=== PATIENT | male | born 1950 | race Caucasian/White ===

== ENCOUNTER 2016-12-08 15:48 | Emergency (ER) | payer SELFPAY ==
[2016-12-08 15:54] VITALS: BP 124/62
[2016-12-08] MEDS ORDERED: DIPHTH,PERTUSS(ACELL),TET VAC 0.5 ML VIAL IM ONE ×2 (16:00→16:22)
[2016-12-08] MEDS ORDERED: CLINDAMYCIN HCL 150 MG CAPSULE PO ONE (16:24)
[2016-12-08] MEDS ORDERED: CLINDAMYCIN HCL 150 MG CAPSULE ONE (16:29)
--- NOTE | 2016-12-08 16:35 | ERNOTE ---
Lower Extremity HPI - Narrative Date of Service: 12/08/16 - General Lower Extremities Pain: 1st toe: left Time Seen by Provider: 12/08/16 15:56 Source: patient Exam Limitations: no limitations - Immun/Allergies/Home Medications Immunizations: IMMUNIZATION HX Immunizations Up to Date patient unsure History of Influenza Vaccine No Hx Pneumococcal Vaccination No Allergies/Adverse Reactions: Allergies Allergy/AdvReac Type Severity Reaction Status Date / Time morphine Allergy Severe Swelling Verified 12/08/16 15:56 of Throat Home Medications: HOME MEDICATIONS Lovastatin [Altoprev] 40 mg PO DAILY 09/15/13 [Last Taken Unknown] Warfarin Sodium [Coumadin] 7.5 mg PO MOWEFR 09/15/13 [Last Taken Unknown] Warfarin Sodium [Coumadin] 10 mg PO SUTUTHSA 09/15/13 [Last Taken Unknown] Escitalopram Oxalate [Lexapro] 20 mg PO DAILY 10/05/16 [Last Taken Unknown] Pentoxifylline [Trental] 400 mg PO TID 10/05/16 [Last Taken Unknown] metFORMIN HCL [Metformin HCl ER] 500 mg PO BID 10/05/16 [Last Taken Unknown] oxyCODONE HCL/ACETAMINOPHEN [Percocet 5 MG/325 MG] 1 tab PO PRN PRN 10/05/16 [ Last Taken Unknown] Clindamycin HCl [Cleocin HCl] 300 mg PO TID #28 capsule 12/08/16 [Last Taken Unknown] - History of Present Illness Narrative: Patient presents to the ED for a toe injury. He relates that he dropped a microwave on his left great toe . This crushed his toe. This happened 3 days ago. He did not want to come in but his friends brought him in to be checked. No other injuries. Pain in the toe moderate right now. No fever. had a toe amputation 1.5 months ago in [place]. No acute N/T/W. No other complaints. No Cp or SOB. Occurred: other - 3 days ago Location of Incident: home Method of Injury: Reports: direct blow Modifying Factors - (Improves): Reports: rest Modifying Factors - (Worsens): Reports: movement Associated Symptoms: Denies: unable to bear weight, weakness Other Injuries: Reports: none Subsequent Symptoms: Denies: sensory loss Prior Treament: Denies: recently seen Review of Systems - Review of Systems Constitutional: Absent: fever Respiratory: Absent: shortness of breath Cardiology: Absent: chest pain Gastrointestinal/Abdominal: Absent: abdominal pain - Patient's Past Medical History Patient History - Medical: No pertinent hx, Diabetes Type 2 Patient History - Cardiac/Respiratory: Atrial Fibrillation, CHF, COPD Patient History - Cancer: No Hx of Cancer Patient History - Surgical Procedures: Appendectomy, Other Patient History - Other: None - Social History Living Situations: home Abuse History: No History of abuse Psych History: Hx of Anxiety, Hx of Depression Smoking Status: Former smoker Have you smoked in the past 12 months: Yes Patient requests Smoking Cessation Consult: No Initiate information on Smoking Cessation: No Alcohol Use: heavy Drug Use: marijuana - Immunizations Immunizations Up to Date: - patient unsure Hx Pneumococcal Vaccination: No History of Influenza Vaccine: No Physical Exam - Physical Exam General Appearance: Present: alert, no apparent distress Head Exam: Present: normal inspection Eye Exam: Normal inspection: bilateral Ears, Nose, Throat: Present: normal ENT inspection Neck: Present: normal inspection Respiratory: Present: no respiratory distress Cardiovascular/Chest: Present: regular rate, rhythm, normal peripheral pulses, other - foot warm and well perfused Gastrointestinal/Abdominal: Present: normal bowel sounds, nontender Extremity Exam: Present: other - no tenderness Tib/Fib, no ankle or other foot tendenress aside from great toe. Left great toe swollen with old, clotted blood under nail. Nail is well adherent though. No clear infection. Tenderness distal great toe. no other tendenress. no clear cellulitis or nec fac. No necrotic areas.\ Neurological Exam: Present: alert, other - sensation LT toe intact. No clear acute motor deficits Skin Exam: Present: normal color, warm/dry, other - bruising left great toe, no clear cellulitis ED Progress - Vital Signs Patient's Vital Signs:: I have reviewed the patient's vital signs. Vital Signs: Vital Signs 12/08/16 15:51 Temperature 36.6 C Pulse Rate 57 L Respiratory 18 Rate Blood Pressure 124/62 O2 Sat by Pulse 98 Oximetry - X-Ray X-Ray #1 X-Ray: foot Interpretation: Interp. by me X-ray Comments: No real time reads by radiology. Tuft fracture great toe, penfing reading - Progress/Reassessment Chief Complaint: Lower Extremity Pain/ Injury Progress Note-Subjective: 12/08/16 16:31 I spoke with Lowell Tsai and discussed the case with him. He recommends ABx and call office tomorrow for appointment. Pt agreeable. I discussed warning signs and reasons to return as well as the need for close f/u. Departure Clinical Impression: Fracture of toe of left foot - Departure Disposition: Home self-care Condition: Stable Instructions: Toe Fracture, [id number] Additional Instructions: Rest. Elevation. Take antibiotic as directed. Antibiotics can interfere with Coumadin, this will need to be followed closely. You are to call Orthopedics in the morning for an appointment time, I spoke with them about your case today. If you have any difficulty with getting an appointment call here and we will help you. Return for fever, increased redness or if your condition worsens or changes in any way. Referrals: María Gibbons FNP [Primary Care Provider] - Prescriptions: Clindamycin HCl [Cleocin HCl] 300 mg PO TID #28 capsule
== END 2016-12-08 16:40 | disposition home or self-care (01) ==
LOC: ER 15:48
DX: M84.478A Pathological fracture, left toe(s), initial encounter for fracture (principal); F17.200 Nicotine dependence, unspecified, uncomplicated

== ENCOUNTER 2018-04-11 11:18 | Inpatient (IN) ==
[2018-04-11] MEDS ORDERED: NORMAL SALINE 500 ML IV ONE (11:41)
[2018-04-11 11:57] LABS: Hemoglobin 14.1 gm/dL (13.5-18.0); Mean Cell Volume 93.5 fl (78-100); Mean Corpuscular Hemoglobin 31.4 pg (27-31); Mean Corpuscular Hgb Conc 33.6 g/dl (32-36); Mean Platelet Volume 9.1 fl (8-11.3); Neutrophil # 6.1 K/mm3 (1.3-6.0); Neutrophil % 71.9 % (42-75.0); Platelet Count 283 K/mm3 (150-450); Red Blood Count 4.49 M/mm3 (4.7-6.0); Red Cell Distribution Width 14.9 % (11.5-14.0); White Blood Count 8.5 K/mm3 (4.0-10.5)
--- NOTE | 2018-04-11 11:59 | ERNOTE ---
Medical Problem HPI - Narrative Date of Service: 04/11/18 - General Chief Complaint: General Assessment Time Seen by Provider: 04/11/18 11:28 Source: patient, RN notes reviewed, old records Exam Limitations: clinical condition - Immun/Allergies/Home Medications Immunizations: IMMUNIZATION HX Immunizations Up to Date Yes History of Influenza Vaccine Yes Hx Pneumococcal Vaccination Yes Allergies/Adverse Reactions: Allergies morphine Allergy (Severe, Verified 04/11/18 11:26) Swelling of Throat Home Medications: HOME MEDICATIONS Lovastatin [Altoprev] 20 mg PO DAILY 09/15/13 [Last Taken Unknown] Warfarin Sodium [Coumadin] 7.5 mg PO FR 09/15/13 [Last Taken Unknown] Warfarin Sodium [Coumadin] 10 mg PO SUMOTUWETHSA 09/15/13 [Last Taken Unknown] Albuterol Sulfate [Proair Respiclick] 90 mcg IH DAILY 05/02/17 [Last Taken Unknown] Budesonide/Formoterol Fumarate [Symbicort 160-4.5 Mcg Inhaler] 10.2 gm IH DAILY 05/02/17 [Last Taken Unknown] Levothyroxine Sodium [Synthroid] 25 mcg PO DAILY 04/08/18 [Last Taken Unknown] Aspirin [Aspirin EC] 81 mg PO DAILY 04/09/18 [Last Taken Unknown] Cilostazol [Pletal] 50 mg PO BID 04/09/18 [Last Taken Unknown] Furosemide [Lasix] 40 mg PO BID 04/09/18 [Last Taken Unknown] Gabapentin 100 mg PO BID 04/09/18 [Last Taken Unknown] LORazepam [Ativan] 0.5 mg PO TID 04/09/18 [Last Taken Unknown] Lisinopril 5 mg PO DAILY 04/09/18 [Last Taken Unknown] Metoprolol Succinate 12.5 mg PO DAILY 04/09/18 [Last Taken Unknown] Sertraline HCl [Zoloft] 25 mg PO DAILY 04/09/18 [Last Taken Unknown] Spironolactone 25 mg PO DAILY 04/09/18 [Last Taken Unknown] hydrALAZINE HCL [Hydralazine HCl] 25 mg PO TID 04/09/18 [Last Taken Unknown] - History of Present History Narrative: Jacob is a 67 year old male brought to the ED by ambulance for generalized weakness and being unable to walk. He was seen here last evening and the previous evening for the same complaints. He reported yesterday that he is afraid to go to sleep, so he has been using meth to stay awake. A CVA alert was called yesterday. A head CT was done and was negative for any acute process. He was eventually discharged home with his family and was able to transfer from the bed to a wheelchair with assistance. He reports that a friend stayed with him last night to keep an eye on him. He denies using meth last night. He is extremely groggy but will answer some questions. He is unable to hold his eyes open. Timing: getting worse Review of Systems - Review of Systems Constitutional: Present: fatigue, decreased activity level EYE: Present: no symptoms reported ENT: Present: no symptoms reported Respiratory: Absent: shortness of breath, cough Cardiology: Absent: chest pain, edema Gastrointestinal/Abdominal: Absent: vomiting, diarrhea, abdominal pain Genitourinary: Present: no symptoms reported Musculoskeletal: Present: muscle pain, joint pain Skin: Present: no symptoms reported Neurological: Present: weakness. Absent: dizziness/light-headedness Endocrine: Present: no symptoms reported Hematologic/Lymphatic: Present: easy bruising, easy bleeding Psych: Present: depressed Medical History (Last Updated 04/11/18 @ 11:47 by Farhana Dick NP) Periorbital cellulitis of right eye (Acute) Amphetamine abuse (Acute) Congestive heart failure Diabetes Diabetic acidosis, type II Non-STEMI (non-ST elevated myocardial infarction) Pacemaker Surgical History: Surgical History (Last Reviewed 04/11/18 @ 11:55 by Farhana Dick NP) History of appendectomy Family History: Family History (Last Reviewed 04/11/18 @ 11:55 by Farhana Dick NP) Other Unknown family medical history Social History: Preferred Language Hungarian Do you have any tenriism or Yes: jainism cultural preference? Smoking Status Current every day smoker Have you smoked in the past 12 Yes months Do you dip or chew tobacco No Abuse History No History of abuse Psych History Hx of Anxiety,Hx of Depression Alcohol Use sober Drug Use meth No Social History Section defined Physical Exam - Physical Exam General Appearance: Present: wd/wn, sleeping/easy to arouse - does not stay awake more than a few seconds, other - Poor hygiene, dirty appearance Head Exam: Present: normal inspection, no evidence of injury Eye Exam: Normal inspection: bilateral, PERRL: bilateral Ears, Nose, Throat: Present: normal except -, dry mucous membranes Neck: Present: normal inspection, nontender, supple Respiratory: Present: no respiratory distress, normal breath sounds, no accessory muscle use, lungs clear Cardiovascular/Chest: Present: regular rate, rhythm, no murmur Gastrointestinal/Abdominal: Present: nontender, nondistended, soft Extremity Exam: Present: normal inspection, non-tender, no edema Neurological Exam: Present: oriented - Answers are appropriate when he does anwer a question, motor weakness - Will not move extremities on command. Absent: alert, normal mood/affect Skin Exam: Present: normal color, warm/dry Progress - Results and Orders Patient's Lab Results:: I have reviewed the patient's lab results. - Vital Signs Patient's Vital Signs:: I have reviewed the patient's vital signs. Vital Signs: Vital Signs 04/11/18 11:22 Temperature 36.4 C Pulse Rate 94 Respiratory Rate 20 Blood Pressure 133/81 O2 Sat by Pulse Oximetry 93 - EKG EKG: other - Paced rhythm, rate 85 EKG read: Reviewed by me - Progress/Reassessment Chief Complaint: General Assessment Progress:: Unchanged Progress Note-Subjective: 04/11/18 12:01 Patient reports to nurse that he took 3 "sleeping pills" last night. He does not know what the pills were. There are no prescribed sleep aids on his medication list. 04/11/18 13:22 A friend that stays with the patient reports that the patient took 2 Tylenol PM at 0500 today. His acetaminophen level was less than 0.2. Dr. Thomas was contacted regarding admission. He recommended giving Narcan. The patient will then be admitted to observation status on med/surg. 04/11/18 13:38 No change in condition with Narcan. Patient remains groggy, continues to awaken easily but only stays awake for a short time. Vitals are stable. To be taken to med/surg shortly. Departure Clinical Impression: Weakness generalized, Amphetamine abuse Ingestion of unknown drug Qualifiers: Encounter type: initial encounter Injury intent: undetermined intent Qualified Code(s): T50.904A - Poisoning by unspecified drugs, medicaments and biological substances, undetermined, initial encounter - Departure Disposition: Still a patient Condition: Stable
[2018-04-11 12:01] LABS: Cocaine Ur Negative (NEGATIVE); Urine Barbiturate Negative (NEGATIVE); Urine Benzodiazepines Negative (NEGATIVE); Urine Opiates Negative (NEGATIVE); Urine PCP Negative (NEGATIVE); Urine THC Negative (NEGATIVE)
[2018-04-11 12:03] LABS: Urine Appearance Clear (CLEAR); Urine Bacteria None Seen; Urine Bilirubin Negative (NEGATIVE); Urine Blood Negative /ul (NEGATIVE); Urine Color Yellow; Urine Ketone Negative (NEGATIVE); Urine Nitrite Negative (NEGATIVE); Urine Protein Negative (NEGATIVE); Urine RBC None Seen /hpf (0-5); Urine Urobilinogen Normal (NORMAL); Urine WBC 0-5 /hpf (0-5)
[2018-04-11 12:07] LABS: Prothrombin Time (Patient) 22.8 Seconds (9.0-11.0)
[2018-04-11 12:08] LABS: INR 2.26 INR (0.90-1.10)
[2018-04-11 12:15] LABS: ALT 23 U/L (19-67); AST 21 U/L (0-48); Albumin * 3.7 gm/dl (3.4-5.0); Alkaline Phosphatase * 113 U/L (50-170); Anion Gap 15.6 mmol/L (6.8-13.8); BUN/Creatinine Ratio 16.8 (9.0-21.6); Bilirubin, Total 0.5 mg/dL (0.0-1.1); Blood Urea Nitrogen 24 mg/dL (6-23); Ca. Corrected For Albumin 9.6 mg/dL (8.4-10.2); Calcium * 9.7 mg/dL (7.9-10.9); Carbon Dioxide 24.7 mmol/L (24-32.6); Chloride 104 mmol/L (97-106); Glucose * 115 mg/dL (70-110); Potassium 4.3 mmol/L (3.4-4.6); Sodium 140 mmol/L (132-142); Total Protein 7.7 gm/dL (6.2-8.2)
[2018-04-11 12:37] LABS: Salicylate 3.9 mg/dL (2.8-20.0)
[2018-04-11] MEDS ORDERED: NALOXONE HCL 1 MG/1 ML SYRG IV ONE (13:20)
--- NOTE | 2018-04-11 16:28 | HP ---
Chief Complaint - Chief Complaint Date of Service: 04/11/18 Time of Service: 16:13 Chief Complaint: Weakness, lethargy, hypersomnolence, history of meth abuse, fear of dying. History of Present Illness: Jacob Flores is a 67-year-old male who is presenting to emergency room daily for the last 3 days. He is brought back today because he is too weak Stands. He can't take care of himself or do toileting hygiene. He states his limbs are very weak. States that he took something last night to help him sleep but he doesn't know what it was. Reportedly it was acetaminophen with diphenhydramine. When asked why he takes methamphetamine he states is because he is afraid to go to sleep because he is afraid he will so he takes meth to stay awake. He was given 1 dose of Narcan in the ER and it made no difference in his alertness or his behavior. He is coughing some and has a loose cough. His oxygen saturation hours 99% and his lungs are clear to auscultation. His lab work is fairly uneventful. He takes 17 mg of warfarin per day 6 days per week and he is therapeutic 2.8 today. He also takes a baby aspirin and Pletal. He is admitted for observation to monitor his mobility and muscle strength. I suspect that whenever he took will wear off for the next 24 hours and he'll be back to his usual baseline. He'll be monitored continuously from cardiac perspective and oxygen saturation perspective. I'm withholding any medications that might be sedating. Medical History (Last Reviewed 04/11/18 @ 14:49 by Nazia Kate RN) Periorbital cellulitis of right eye (Acute) Amphetamine abuse (Acute) Congestive heart failure Diabetes Diabetic acidosis, type II Non-STEMI (non-ST elevated myocardial infarction) Pacemaker Surgical History: Surgical History (Last Reviewed 04/11/18 @ 14:49 by Nazia Kate RN) History of appendectomy Family History: Family History (Last Reviewed 04/11/18 @ 14:49 by Nazia Kate RN) Other Unknown family medical history Social History: Preferred Language Sammarinese Do you have any tenriism or Yes: samaritan cultural preference? Smoking Status Current every day smoker Have you smoked in the past 12 Yes months Do you dip or chew tobacco No Abuse History No History of abuse Psych History Hx of Anxiety,Hx of Depression Alcohol Use sober Drug Use meth No Social History Section defined Review Of Systems (GEN) - Review of Systems Generalized/Overall Review: Present: Weakness, Malaise EENTM: Present: No Symptoms Reported Respiratory: Present: Cough, Wheezing Cardiac: Present: No Symptoms Reported Abdominal: Present: No Symptoms Reported Genitourinary: Present: No Symptoms Reported Musculoskeletal: Present: Other Neurological: Present: Depressed, Emotional Problems, Weakness Skin: Present: No Symptoms Reported Endocrine: Present: No Symptoms Reported Misc: All systems neg except as marked - Diffuse muscle weakness Immunizations: IMMUNIZATION HX Immunizations Up to Date Yes History of Influenza Vaccine Yes Hx Pneumococcal Vaccination Yes Allergies/Adverse Reactions: Allergies Allergy/AdvReac Type Severity Reaction Status Date / Time morphine Allergy Severe Swelling Verified 04/11/18 11:26 of Throat Home Medications: HOME MEDICATIONS Lovastatin [Altoprev] 20 mg PO DAILY 09/15/13 [Last Taken Unknown] Warfarin Sodium [Coumadin] 7.5 mg PO FR 09/15/13 [Last Taken Unknown] Warfarin Sodium [Coumadin] 10 mg PO SUMOTUWETHSA 09/15/13 [Last Taken Unknown] Albuterol Sulfate [Proair Respiclick] 90 mcg IH DAILY 05/02/17 [Last Taken Unknown] Budesonide/Formoterol Fumarate [Symbicort 160-4.5 Mcg Inhaler] 10.2 gm IH DAILY 05/02/17 [Last Taken Unknown] Levothyroxine Sodium [Synthroid] 25 mcg PO DAILY 04/08/18 [Last Taken Unknown] Aspirin [Aspirin EC] 81 mg PO DAILY 04/09/18 [Last Taken Unknown] Cilostazol [Pletal] 50 mg PO BID 04/09/18 [Last Taken Unknown] Furosemide [Lasix] 40 mg PO BID 04/09/18 [Last Taken Unknown] Gabapentin 100 mg PO BID 04/09/18 [Last Taken Unknown] LORazepam [Ativan] 0.5 mg PO TID 04/09/18 [Last Taken Unknown] Lisinopril 5 mg PO DAILY 04/09/18 [Last Taken Unknown] Metoprolol Succinate 12.5 mg PO DAILY 04/09/18 [Last Taken Unknown] Sertraline HCl [Zoloft] 25 mg PO DAILY 04/09/18 [Last Taken Unknown] Spironolactone 25 mg PO DAILY 04/09/18 [Last Taken Unknown] hydrALAZINE HCL [Hydralazine HCl] 25 mg PO TID 04/09/18 [Last Taken Unknown] Exam - Exam Vital Signs: Vital Signs - Last Taken Temp 36.4 C 04/11/18 11:22 Pulse 85 04/11/18 13:43 Resp 11 L 04/11/18 13:43 BP 117/72 04/11/18 13:43 Pulse Ox 95 04/11/18 13:43 Constitutional: Present: Cooperative, Well developed, Well nourished, Mild distress, Lethargic, Somnolent, Looks Older than stated age. Absent: Alert, Oriented x3 ENT Exam: Present: normal ENT inspection, hearing grossly normal, pharynx normal, TMs normal Eye Exam: bilateral eye: normal inspection, PERRL, EOMI Neck: Present: non-tender, full range of motion, supple, normal inspection, trachea midline Back Exam: Present: normal inspection Breasts: Present: Nontender Respiratory: Present: chest non-tender, lungs clear, other - Loose cough Cardiovascular/Chest: Present: normal peripheral pulses, regular rate, rhythm, no chest tenderness, no edema, no gallop, no JVD, no murmur, no rub Peripheral Pulses: carotid (R): 2+, carotid (L): 2+, radial (R): 2+, radial (L): 2+ Abdomen: Present: Normal bowel sounds, soft, nontender, nondistended, no rebound tenderness, no hepatospenomegaly, no masses /Rectal: Present: Exam deferred Extremity: Present: normal range of motion, non-tender, normal inspection, no pedal edema, no calf tenderness, normal capillary refill Skin Exam: Present: normal color, warm/dry, no cyanosis Lymphatic: Present: no adenopathy Neurologic: Present: network infrastructure architect II-XII nml as tested, motor weakness, depressed affect Appearance: Present: disheveled, impaired insight, impaired recent memory Eye contact: Present: cooperative, good eye contact, normal speech Thoughts: Present: no apparent hallucination, phobic - About dying Diagnostic Studies: Abnormal Lab Results 04/11/18 04/11/18 04/11/18 Range/Units 11:50 11:51 11:51 RBC 4.49 L (4.7-6.0) M/mm3 MCH 31.4 H (27-31) pg RDW 14.9 H (11.5-14.0) % Lymphocytes % 16.3 L (20-51) % Neutrophils # 6.1 H (1.3-6.0) K/mm3 Lymphocytes # 1.39 L (1.5-3.5) k/mm3 PT (9.0-11.0) Seconds INR (Anticoag Therapy) (0.90-1.10) INR Anion Gap 15.6 H (6.8-13.8) mmol/L BUN 24 H (6-23) mg/dL Creatinine 1.43 H D (0.4-1.4) mg/dL Est GFR (Non-Af Amer) 53 L D (60-130) mL/min Random Glucose 115 H (70-110) mg/dL Acetaminophen (10.0-30.0) mcg/mL Urine Amphetamine Positive H (NEGATIVE) 04/11/18 04/11/18 Range/Units 11:51 11:51 RBC (4.7-6.0) M/mm3 MCH (27-31) pg RDW (11.5-14.0) % Lymphocytes % (20-51) % Neutrophils # (1.3-6.0) K/mm3 Lymphocytes # (1.5-3.5) k/mm3 PT 22.8 H (9.0-11.0) Seconds INR (Anticoag Therapy) 2.26 H (0.90-1.10) INR Anion Gap (6.8-13.8) mmol/L BUN (6-23) mg/dL Creatinine (0.4-1.4) mg/dL Est GFR (Non-Af Amer) (60-130) mL/min Random Glucose (70-110) mg/dL Acetaminophen Less than 0.2 L (10.0-30.0) mcg/mL Urine Amphetamine (NEGATIVE) Laboratory Results WBC 8.5 K/mm3 (4.0-10.5) D 04/11/18 11:51 RBC 4.49 M/mm3 (4.7-6.0) L 04/11/18 11:51 Hgb 14.1 gm/dL (13.5-18.0) 04/11/18 11:51 Hct 42.0 % (42.0-52.0) 04/11/18 11:51 MCV 93.5 fl (78-100) 04/11/18 11:51 MCH 31.4 pg (27-31) H 04/11/18 11:51 MCHC 33.6 g/dl (32-36) 04/11/18 11:51 RDW 14.9 % (11.5-14.0) H 04/11/18 11:51 Plt Count 283 K/mm3 (150-450) 04/11/18 11:51 MPV 9.1 fl (8-11.3) 04/11/18 11:51 Immature Gran % (Auto) 0.20 % (0.001-0.429) 04/11/18 11:51 Immature Gran # (Auto) 0.02 K/mm3 (0.000-0.0310) 04/11/18 11:51 Neutrophils % 71.9 % (42-75.0) 04/11/18 11:51 Lymphocytes % 16.3 % (20-51) L 04/11/18 11:51 Monocytes % 8.5 % (0.0-9) 04/11/18 11:51 Eosinophils % 2.6 % (0.0-3.0) 04/11/18 11:51 Basophils % 0.5 % (0.0-1.0) 04/11/18 11:51 Nucleated RBC % 0.0 k/mm3 (0-1) 04/11/18 11:51 Neutrophils # 6.1 K/mm3 (1.3-6.0) H 04/11/18 11:51 Lymphocytes # 1.39 k/mm3 (1.5-3.5) L 04/11/18 11:51 Monocytes # 0.7 k/mm3 (0.0-1.0) 04/11/18 11:51 Eosinophils # 0.2 k/mm3 (0.0-0.7) 04/11/18 11:51 Absolute Basophils 0.0 k/mm3 (0.0-0.1) 04/11/18 11:51 PT 22.8 Seconds (9.0-11.0) H 04/11/18 11:51 INR (Anticoag Therapy) 2.26 INR (0.90-1.10) H 04/11/18 11:51 Sodium 140 mmol/L (132-142) 04/11/18 11:51 Plasma Sodium 140 mmol/L (130-142) 04/11/18 11:51 Potassium 4.3 mmol/L (3.4-4.6) 04/11/18 11:51 Chloride 104 mmol/L (97-106) 04/11/18 11:51 Carbon Dioxide 24.7 mmol/L (24-32.6) 04/11/18 11:51 Anion Gap 15.6 mmol/L (6.8-13.8) H 04/11/18 11:51 BUN 24 mg/dL (6-23) H 04/11/18 11:51 Creatinine 1.43 mg/dL (0.4-1.4) H D 04/11/18 11:51 Est GFR (Non-Af Amer) 53 mL/min (60-130) L D 04/11/18 11:51 BUN/Creatinine Ratio 16.8 (9.0-21.6) 04/11/18 11:51 Random Glucose 115 mg/dL (70-110) H 04/11/18 11:51 Calcium 9.7 mg/dL (7.9-10.9) 04/11/18 11:51 Calcium Adj for Albumin 9.6 mg/dL (8.4-10.2) 04/11/18 11:51 Total Bilirubin 0.5 mg/dL (0.0-1.1) 04/11/18 11:51 AST 21 U/L (0-48) 04/11/18 11:51 ALT 23 U/L (19-67) 04/11/18 11:51 Alkaline Phosphatase 113 U/L (50-170) 04/11/18 11:51 Total Protein 7.7 gm/dL (6.2-8.2) 04/11/18 11:51 Albumin 3.7 gm/dl (3.4-5.0) 04/11/18 11:51 Urine Color Yellow 04/11/18 11:27 Urine Appearance Clear (CLEAR) 04/11/18 11:27 Urine pH 6.0 pH (5.0-7.0) 04/11/18 11:27 Ur Specific [place] 1.020 SP.GR. (1.005-1.030) 04/11/18 11:27 Urine Protein Negative mg/dL (NEGATIVE) 04/11/18 11:27 Urine Glucose (UA) Negative mg/dL (NEGATIVE) 04/11/18 11:27 Urine Ketones Negative mg/dL (NEGATIVE) 04/11/18 11:27 Urine Blood Negative /ul (NEGATIVE) 04/11/18 11:27 Urine Nitrate Negative (NEGATIVE) 04/11/18 11:27 Urine Bilirubin Negative mg/dl (NEGATIVE) 04/11/18 11:27 Urine Urobilinogen Normal EU/dl (NORMAL) 04/11/18 11:27 Ur Leukocyte Esterase Negative /ul (NEGATIVE) 04/11/18 11:27 Urine RBC None seen /hpf (0-5) 04/11/18 11:27 Urine WBC 0-5 /hpf (0-5) 04/11/18 11:27 Ur Epithelial Cells 0-5 /hpf (0-5) 04/11/18 11:27 Urine Bacteria None seen (NONE) 04/11/18 11:27 Urine Culture Comments No culture indicated 04/11/18 11:27 Salicylates 3.9 mg/dL (2.8-20.0) 04/11/18 11:51 Urine Opiates Screen Negative (NEGATIVE) 04/11/18 11:50 Acetaminophen Less than 0.2 mcg/mL (10.0-30.0) L 04/11/18 11:51 Barbiturate Screen Negative (NEGATIVE) 04/11/18 11:50 Ur Phencyclidine Scrn Negative (NEGATIVE) 04/11/18 11:50 Urine Amphetamine Positive (NEGATIVE) H 04/11/18 11:50 U Benzodiazepines Scrn Negative (NEGATIVE) 04/11/18 11:50 Urine Cocaine Screen Negative (NEGATIVE) 04/11/18 11:50 Urine Marijuana (THC) Negative (NEGATIVE) 04/11/18 11:50 Ethyl Alcohol Less than 3.0 mg/dL (0.0-10.0) 04/11/18 11:51 Assessment/Plan - Narrative Narrative: 1. Primarily observation 2. Repeat lab in the morning 3. PT to begin assessing his mobility on Friday if he still here. - Assessment/Plan (1) Weakness generalized Problem: Acute (2) Confusion Problem: Acute (3) Anxiety Problem: Chronic (4) Ingestion of unknown drug Problem: Acute Qualifiers: Encounter type: initial encounter Injury intent: undetermined intent Qualified Code(s): T50.904A - Poisoning by unspecified drugs, medicaments and biological substances, undetermined, initial encounter (5) Amphetamine abuse Problem: Chronic
[2018-04-11] MEDS: WARFARIN SODIUM 5 MG TABLET PO SCH ×2 (18:00→18:05)
[2018-04-11] MEDS: CILOSTAZOL 100 MG TABLET PO SCH (21:08)
[2018-04-12] MEDS ORDERED: ALBUTEROL SULFATE 2.5 MG/0.5 ML VIAL.NEB IH ONE (05:56)
[2018-04-12] MEDS: ALBUTEROL SULFATE 2.5 MG/0.5 ML VIAL.NEB IH SCH ×2 (06:08→06:30)
[2018-04-12] MEDS: LEVOTHYROXINE SODIUM 25 MCG TABLET PO SCH (07:41)
[2018-04-12] MEDS ORDERED: ALBUTEROL SULFATE 2.5 MG/0.5 ML VIAL.NEB IH SCH (09:00)
[2018-04-12] MEDS: CILOSTAZOL 100 MG TABLET PO SCH ×2 (09:48→23:13)
[2018-04-12] MEDS: METOPROLOL SUCCINATE 25 MG TABLET.SA PO SCH (09:48)
[2018-04-12] MEDS: SERTRALINE HCL 50 MG TABLET PO SCH (09:48)
[2018-04-12] MEDS: ASPIRIN 81 MG TABLET.DR PO SCH (09:48)
[2018-04-12] MEDS: FLUTICASONE/SALMETEROL 14 PUFF DISK.W.DEV IH SCH (09:48)
[2018-04-12] MEDS: LISINOPRIL 5 MG TABLET PO SCH (09:48)
[2018-04-12 09:57] LABS: Albumin * 3.6 gm/dl (3.4-5.0); Anion Gap 15.9 mmol/L (6.8-13.8); BUN/Creatinine Ratio 16.7 (9.0-21.6); Bilirubin, Total 0.6 mg/dL (0.0-1.1); Ca. Corrected For Albumin 9.8 mg/dL (8.4-10.2); Calcium * 9.8 mg/dL (7.9-10.9); Carbon Dioxide 23.4 mmol/L (24-32.6); Potassium 4.3 mmol/L (3.4-4.6); Total Protein 7.6 gm/dL (6.2-8.2)
[2018-04-12 09:59] LABS: Hematocrit 43.2 % (42.0-52.0); Hemoglobin 14.4 gm/dL (13.5-18.0); Mean Cell Volume 93.9 fl (78-100); Mean Corpuscular Hemoglobin 31.3 pg (27-31); Mean Corpuscular Hgb Conc 33.3 g/dl (32-36); Mean Platelet Volume 9.9 fl (8-11.3); Neutrophil # 7.8 K/mm3 (1.3-6.0); Neutrophil % 72.8 % (42-75.0); Platelet Count 326 K/mm3 (150-450); Red Cell Distribution Width 14.8 % (11.5-14.0); White Blood Count 10.7 K/mm3 (4.0-10.5)
[2018-04-12 12:33] LABS: Prothrombin Time (Patient) 20.5 Seconds (9.0-11.0)
[2018-04-12 12:34] LABS: INR 2.04 INR (0.90-1.10)
--- NOTE | 2018-04-12 13:05 | PN ---
Subjective - Date and Time Seen Date: 04/12/18 Time: 09:45 Subjective Narrative: Jacob is not improved today. I would assume that any substances he had ingested should have metabolized away by now. He has paralysis of both legs and very little feeling in the lower extremities. He also has paralysis of the upper extremities. He is unable to bend his arms forward on command. He is unable to get anything off of his hospital table. He is hungry and can't feed himself and will have to be fed. He gives a history of a fall 2 months ago where he had a concussion and a laceration that had to be repaired and has had some neck and upper back discomfort since then. The paralysis however it was onset this week and its etiology is uncertain. I plan to have a CT myelogram done tomorrow as well as a lumbar puncture for spinal fluid analysis. I will check this patient out to Dr. Bee tomorrow. Objective - Review of Systems Generalized/Overall Review: Reports: Weakness EENTM: Reports: No Symptoms Reported Respiratory: Reports: Cough Cardiac: Reports: No Symptoms Reported Abdominal: Reports: No Symptoms Reported Genitourinary Symptoms: Reports: No Symptoms Reported Neurological: Reports: Parasthesia, Weakness, Other - Subtotal paralysis of u pper and lower extremities Endocrine: Reports: No Symptoms Reported - Vitals Vitals: Last Vital Signs Temp 36.3 C 04/12/18 10:59 Pulse 85 04/12/18 12:21 Resp 18 04/12/18 10:59 BP 109/67 04/12/18 10:59 Pulse Ox 97 04/12/18 10:59 - Abnormal Lab Findings Abnormal Lab Findings: Abnormal Lab Results 04/12/18 04/12/18 04/12/18 Range/Units 06:30 06:30 06:30 WBC 10.7 H D (4.0-10.5) K/mm3 RBC 4.60 L (4.7-6.0) M/mm3 MCH 31.3 H (27-31) pg RDW 14.8 H (11.5-14.0) % Immature Gran # (Auto) 0.04 H (0.000-0.0310) K/mm3 Lymphocytes % 16.7 L (20-51) % Neutrophils # 7.8 H (1.3-6.0) K/mm3 PT (9.0-11.0) Seconds INR (Anticoag Therapy) (0.90-1.10) INR Carbon Dioxide 23.4 L (24-32.6) mmol/L Anion Gap 15.9 H (6.8-13.8) mmol/L BUN 25 H (6-23) mg/dL Creatinine 1.50 H (0.4-1.4) mg/dL Est GFR (Non-Af Amer) 50 L (60-130) mL/min Acetaminophen Less than 0.2 L (10.0-30.0) mcg/mL 04/12/ Range/Units 09:00 WBC (4.0-10.5) K/mm3 RBC (4.7-6.0) M/mm3 MCH (27-31) pg RDW (11.5-14.0) % Immature Gran # (Auto) (0.000-0.0310) K/mm3 Lymphocytes % (20-51) % Neutrophils # (1.3-6.0) K/mm3 PT 20.5 H (9.0-11.0) Seconds INR (Anticoag Therapy) 2.04 H (0.90-1.10) INR Carbon Dioxide (24-32.6) mmol/L Anion Gap (6.8-13.8) mmol/L BUN (6-23) mg/dL Creatinine (0.4-1.4) mg/dL Est GFR (Non-Af Amer) (60-130) mL/min Acetaminophen (10.0-30.0) mcg/mL - Exam Constitutional: Present: Alert, Oriented x3, Cooperative, Well developed, Well nourished, No distress, Obese ENT Exam: Present: normal ENT inspection, hearing grossly normal, pharynx normal, TMs normal Neck: Present: non-tender, full range of motion, supple Breasts: Present: Nontender Respiratory: Present: chest non-tender, lungs clear, normal breath sounds, no respiratory distress, no accessory muscle use Cardiovascular/Chest: Present: normal peripheral pulses, regular rate, rhythm, no chest tenderness, no edema, no gallop, no JVD, no murmur, no rub Abdomen: Present: Normal bowel sounds, soft, nontender, nondistended, no rebound tenderness, no hepatospenomegaly, no masses /Rectal: Present: Exam deferred Extremity: Present: normal range of motion, non-tender, normal inspection, no pedal edema, no calf tenderness, normal capillary refill Skin Exam: Present: normal color, warm/dry, no cyanosis Lymphatic: Present: no adenopathy Neurologic: Present: 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, alert, normal mood/affect, oriented x 3, sensory deficit - Arms, hands, legs and feet Appearance: Present: appropriate appearance, appropriate insight, neat, no memory impairment Eye contact: Present: cooperative, good eye contact, normal speech Thoughts: Present: normal thought pattern, no apparent hallucination Assessment/Plan - Problems/Diagnosis (1) Weakness generalized Problem: Acute (2) Confusion Problem: Acute (3) Anxiety Problem: Chronic (4) Ingestion of unknown drug Problem: Acute Qualifiers: Encounter type: initial encounter Injury intent: undetermined intent Qualified Code(s): T50.904A - Poisoning by unspecified drugs, medicaments and biological substances, undetermined, initial encounter (5) Amphetamine abuse Problem: Chronic (6) Paralysis Problem: Acute
[2018-04-12] MEDS ORDERED: PHYTONADIONE 1 MG/0.5 ML SYRG IM ONE (14:24)
[2018-04-12] MEDS ORDERED: WARFARIN SODIUM 10 MG TABLET PO SCH (16:00)
[2018-04-12] MEDS ORDERED: PHYTONADIONE (VIT K1) 10 MG/ML AMPUL IM ONE (16:24)
[2018-04-12] MEDS: traMADol HCL 50 MG TABLET PO SCH (19:07)
[2018-04-13] MEDS: traMADol HCL 50 MG TABLET PO SCH ×4 (02:13→18:21)
[2018-04-13 03:59] LABS: Prothrombin Time (Patient) 13.8 Seconds (9.0-11.0)
[2018-04-13 04:04] LABS: INR 1.38 INR (0.90-1.10)
[2018-04-13] MEDS: ALBUTEROL SULFATE 2.5 MG/0.5 ML VIAL.NEB IH SCH ×2 (06:10→09:00)
[2018-04-13] MEDS: LEVOTHYROXINE SODIUM 25 MCG TABLET PO SCH (07:22)
[2018-04-13] MEDS: ASPIRIN 81 MG TABLET.DR PO SCH (09:53)
[2018-04-13] MEDS: FLUTICASONE/SALMETEROL 14 PUFF DISK.W.DEV IH SCH (09:53)
[2018-04-13] MEDS: METOPROLOL SUCCINATE 25 MG TABLET.SA PO SCH (09:53)
[2018-04-13] MEDS: SERTRALINE HCL 50 MG TABLET PO SCH (09:54)
[2018-04-13] MEDS: LISINOPRIL 5 MG TABLET PO SCH (09:54)
[2018-04-13] MEDS: CILOSTAZOL 100 MG TABLET PO SCH ×2 (09:54→20:34)
[2018-04-13 13:09] LABS: CSF Appearance Clear (CLEAR); CSF Color Colorless (COLORLESS); CSF RBC 2 /uL (0-10); CSF WBC 5 /uL (0-10)
[2018-04-13 13:10] LABS: CSF Eosiniphils 1 % (0-0); CSF Lymphocytes 89 % (0-100)
--- NOTE | 2018-04-13 14:59 | PN ---
Subjective - Date and Time Seen Date: 04/13/18 Time: 14:48 Subjective Narrative: Patient report no change in his weakness. He can not feed himself, and sometimes calls for help to go to the bathroom. He reports he has not had a BM in 3-4 days. Objective - Review of Systems Generalized/Overall Review: Denies: Fever Respiratory: Denies: Cough, Shortness of Breath Cardiac: Denies: Chest Pain, Edema Abdominal: Denies: Vomiting Genitourinary Symptoms: Denies: Frequency Neurological: Reports: Other - dizziness. Denies: Headache - Vitals Vitals: Last Vital Signs Temp 36.4 C 04/13/18 12:54 Pulse 87 04/13/18 12:54 Resp 16 04/13/18 12:54 BP 149/76 04/13/18 12:54 Pulse Ox 92 L 04/13/18 12:54 - Abnormal Lab Findings Abnormal Lab Findings: Abnormal Lab Results 04/13/18 04/13/18 04/13/18 Range/Units 03:48 11:40 11:40 PT 13.8 H (9.0-11.0) Seconds INR (Anticoag Therapy) 1.38 H (0.90-1.10) INR CSF Neutrophils 10 H (0-0) % CSF Eosinophils 1 H (0-0) % CSF Total Protein 160.4 H (15.0-45.0) mg/dL - Exam Constitutional: Present: Alert, No distress Respiratory: Present: normal breath sounds, no respiratory distress Cardiovascular/Chest: Present: regular rate, rhythm Abdomen: Present: Normal bowel sounds, soft /Rectal: Present: Other - weak sphincter tone Neurologic: Present: other - unable to obtain patellar reflexes Assessment/Plan - Problems/Diagnosis (1) Weakness generalized Problem: Acute Narrative: 1/5 strength of elbow flexion. He is able to raise bilateral shoulders, but does not move hands or feet. Chart review shows he has had this complaint since 04/10. LP done this morning, and labs are pending. CT myelogram was negative for fracture or acute cord compression. He did take substances to help/prevent sleep (per notes), and his symptoms may improve as those meds clear his system. Unclear source. (2) Methamphetamine use Problem: Acute (3) Paralysis Problem: Acute
[2018-04-13] MEDS ORDERED: METHYLPREDNISOLONE SOD SUCC/PF 40 MG/ML VIAL IV ONE (16:42)
--- NOTE | 2018-04-13 16:49 | PATH ---
PHYSICIAN: Kathya Harrison DO LAB#: [id number] SPECIMEN DATE: 1223 2017 SPECIMEN: CSF CLINICAL INFORMATION: Patient is a 67-year-old type II diabetic man presents repeatedly for a few days to the emergency department at [facility] with weakness and is unable to stand. He is admitted to [facility] and a lumbar puncture is performed due to neurologic symptoms including paralysis and weakness. CSF WBC count 5; with 10% neutrophils 89% lymphocytes 1% eosinophil. CSF glucose 73 mg/dL;CSF protein 160 mg/dL. The remainder of the CSF is frozen. GROSS DESCRIPTION: The specimen is received in a urine container appropriate designated, "CSF." It consists of 30 mL of clear fluid with cytospin fixative added. Two cytospin slides are stained with Pap smear for cytologic examination. DIAGNOSIS: CEREBRAL SPINAL FLUID, LUMBAR PUNCTURE: -SOME LYMPHOCYTES, RARE MONONUCLEAR CELLS AND RARE NEUTROPHILS, SEE COMMENT COMMENT: This is an essentially normal cerebral spinal fluid cytologic study. The findings correlate with concurrent normal 5 WBC cell count. Cytospin concentrates the fluid to allow examination of rare cells detected. No evidence of atypia or malignancy. Findings are discussed with Dr. Harrison on 04/13/2018.
[2018-04-13] MEDS ORDERED: WARFARIN SODIUM 10 MG TABLET PO SCH (17:00)
[2018-04-13] MEDS ORDERED: METHYLPREDNISOLONE SOD SUCC/PF 125 MG/2 ML VIAL ONE (17:33)
[2018-04-13] MEDS ORDERED: WARFARIN SODIUM 5 MG TABLET ONE (17:37)
[2018-04-14] MEDS ORDERED: SUCCINYLCHOLINE CHLORIDE 20 MG/ML VIAL IV SCH
[2018-04-14] MEDS ORDERED: PROPOFOL VIAL IV SCH
[2018-04-14] MEDS ORDERED: ROCURONIUM BROMIDE 10 MG/ML VIAL IV SCH
[2018-04-14] MEDS: traMADol HCL 50 MG TABLET PO SCH (00:31)
[2018-04-14 03:10] LABS: Anion Gap 15.7 mmol/L (6.8-13.8); BUN/Creatinine Ratio 21.3 (9.0-21.6); Calcium * 9.6 mg/dL (7.9-10.9); Carbon Dioxide 27.7 mmol/L (24-32.6); Estimated Creat Clear 44.8; Potassium 6.4 mmol/L (3.4-4.6)
[2018-04-14] MEDS ORDERED: NORMAL SALINE 1,000 ML IV ONE ×2 (03:30→04:33)
[2018-04-14] MEDS ORDERED: PROPOFOL VIAL IV ONE (03:48)
[2018-04-14] MEDS ORDERED: NOREPINEPHRINE BITARTRATE 4 MG in DEXTROSE 5 % IN WATER 496 ML IV PRN ×2 (04:14)
--- NOTE | 2018-04-14 04:28 | ANES ---
Anesthesia Procedure Note Procedure Note: ANESTHESIA PROCEDURE NOTE Date of Procedure: 04/14/2018. Time of procedure: 354. Performed by: Yusuf East CRNA Material Handler 1St Shift: None. Preprocedure diagnosis: Respiratory failure. Post procedure diagnosis: Same. Procedure: Tracheal intubation. Indications: This is a 67-year-old male in SCU on BiPAP who is needing tracheal intubation for ventilator management and transfer to [facility] care facility. Findings: See below. Details of the procedure: Propofol 170 mg and succinylcholine 120 mg was a dministered IV prior to intubation. The patient was intubated with a #8 ETT, using a Argueta 3 blade. Tube secured at 22 cm at lips. Bilateral equal breath sounds noted. Positive ETCO2 noted. Chest X ray revealed adequate ET placement. EBL: Minimal. Fluids: N/A. Specimen: N/A. Post procedure condition: The patient tolerated the procedure well. No complications were noted. Thank you for this consultation. Yusuf East CRNA
[2018-04-14] MEDS ORDERED: NORMAL SALINE IV PRN (04:33)
[2018-04-14] MEDS ORDERED: MIDAZOLAM HCL IV PRN (04:33)
--- NOTE | 2018-04-14 04:52 | DS ---
Transfer Discharge Summary - Diagnosis(s)/Problems (1) Respiratory failure Problem: Acute (2) Weakness generalized Problem: Acute (3) Methamphetamine use Problem: Acute (4) Paralysis Problem: Acute - Course Description of Stay: Patient admitted after several visits to the ED for weakness. He stated he woke on the morning of 04/11 and couldn't move his arms and legs. He also stated he had been using meth to stay awake, and an unknown medication to help him sleep. UDS positive for methamphetamines. Over the next two days, his condition did not change. LP was done, and initial studies were normal. CT Myelogram of his cervical and thoracic spine were negative. On the evening of 04/13, his oxygenation decreased, but improved with 1-2 L via NC. Overnight, his respiratory status decreased and he was placed on bipap. He became more somnolent, and was intubated. After intubation, his BP dropped, but recovered prior to starting levophed. It is felt his symptoms may be secondary to [place] or myasthenia gravis. [facility] initially called for transfer, but would not accept neurologic cases. He was accepted at [facility] and transferred to their ICU. Procedures Performed: see notes below - LP, intubation - Results and Findings Results and Findings: Laboratory Results - last 24 hr 04/13/18 04/13/18 04/13/18 08:00 11:40 11:40 pCO2 pO2 HCO3 Total CO2 Base Excess ABG pH ABG O2 Sat (Measured) Sodium Plasma Sodium Potassium Chloride Carbon Dioxide Anion Gap BUN Creatinine Est GFR (Non-Af Amer) BUN/Creatinine Ratio Random Glucose Calcium CSF Appearance Clear CSF Color Colorless CSF WBC 5 CSF RBC 2 CSF Neutrophils 10 H CSF Lymphocytes 89 CSF Eosinophils 1 H CSF Glucose 73 CSF Total Protein 160.4 H Miscellaneous Cytology Spec. sent to path. 04/14/18 04/14/18 02:41 02:55 pCO2 78.0 H* pO2 70.0 L HCO3 24.0 Total CO2 26.0 H Base Excess -6.0 L ABG pH 7.09 L* ABG O2 Sat (Measured) 85.0 L Sodium 140 Plasma Sodium 141 Potassium 6.4 H D Chloride 103 Carbon Dioxide 27.7 Anion Gap 15.7 H BUN 44 H D Creatinine 2.07 H D Est GFR (Non-Af Amer) 34 L D BUN/Creatinine Ratio 21.3 Random Glucose 187 H D Calcium 9.6 CSF Appearance CSF Color CSF WBC CSF RBC CSF Neutrophils CSF Lymphocytes CSF Eosinophils CSF Glucose CSF Total Protein Miscellaneous Cytology - Medications Medications: Active Medications Albuterol Sulfate (Albuterol Sulfate 2.5 Mg/0.5ml) 2.5 mg IH DAILY WENDI Stop: 05/12/18 07:01 Last Admin: 04/13/18 09:00 Dose: Not Given Documented by: Aspirin (Aspirin Enteric Coated) 81 mg PO DAILY WENDI Stop: 05/12/18 09:01 Last Admin: 04/13/18 09:53 Dose: 81 mg Documented by: Cilostazol (Pletal) 50 mg PO BID WENDI Stop: 05/11/18 21:01 Last Admin: 04/13/18 20:34 Dose: 50 mg Documented by: Levothyroxine Sodium (Synthroid) 25 mcg PO 0700 WENDI Stop: 05/12/18 07:01 Last Admin: 04/13/18 07:22 Dose: 25 mcg Documented by: Lisinopril (Zestril) 5 mg PO DAILY WENDI Stop: 05/12/18 09:01 Last Admin: 04/13/18 09:54 Dose: 5 mg Documented by: Metoprolol Succinate (Toprol Xl) 12.5 mg PO DAILY WENDI Stop: 05/12/18 09:01 Last Admin: 04/13/18 09:53 Dose: 12.5 mg Documented by: Fluticasone/Salmeterol (Advair 500-50 Diskus) 1 puff IH DAILY WENDI Stop: 05/12/18 09:01 Last Admin: 04/13/18 09:53 Dose: 1 puff Documented by: Sertraline HCl (Zoloft) 25 mg PO DAILY WENDI Stop: 05/12/18 09:01 Last Admin: 04/13/18 09:54 Dose: 25 mg Documented by: Tramadol HCl (Ultram) 100 mg PO Q6H [facility] Stop: 05/12/18 19:01 Last Admin: 04/14/18 00:31 Dose: 100 mg Documented by: Warfarin Sodium (Coumadin) 10 mg PO DAILY@1700 WENDI Stop: 05/13/18 17:01 Last Admin: 04/13/18 17:39 Dose: 10 mg Documented by: Discontinued Medications Sodium Chloride (Sodium Chloride 0.9%) 500 mls @ 999 mls/hr IV .Q31M ONE Stop: 04/11/18 12:11 Last Infusion: 04/11/18 12:29 Dose: Infused Documented by: Sodium Chloride (Sodium Chloride 0.9%) 1,000 mls @ 999 mls/hr IV .Q1H1M ONE Stop: 04/14/18 04:30 Last Admin: 04/14/18 03:30 Dose: 999 mls/hr Documented by: Methylprednisolone Sodium Succinate (Solu-Medrol) 125 mg IV ONCE ONE Stop: 04/13/18 16:43 Last Admin: 04/13/18 17:39 Dose: 125 mg Documented by: Naloxone HCl (Narcan) 1 mg IV ONCE ONE Stop: 04/11/18 13:21 Last Admin: 04/11/18 13:26 Dose: 1 mg Documented by: Phytonadione (Aqua-Mephyton) 0.5 mg IM ONCE ONE Stop: 04/12/18 14:25 Last Admin: 04/12/18 15:17 Dose: 0.5 mg Documented by: Phytonadione (Vitamin K) 10 mg IM ONCE ONE Stop: 04/12/18 16:25 Last Admin: 04/12/18 17:22 Dose: 10 mg Documented by: Warfarin Sodium (Coumadin) 10 mg PO SuMoTuWeThSa@1600 WENDI Stop: 05/11/18 16:01 Last Admin: 04/11/18 18:05 Dose: Not Given Documented by: Warfarin Sodium (Coumadin) 10 mg PO SuMoTuWeThSa@1600 WENDI Stop: 05/12/18 16:01 Last Admin: 04/12/18 15:21 Dose: Not Given Documented by: - Disposition Disposition: Short Term Hospital Inpatient Condition: Stable Discharge Date: 04/14/18 Discharge Time: 04:50
[2018-04-14] MEDS ORDERED: KETAMINE HCL 50 MG/ML VIAL IV ONE (05:15)
[2018-04-14 06:27] VITALS: BP 129/59
[2018-04-17] MEDS ORDERED: WARFARIN SODIUM 7.5 MG TABLET PO SCH (16:00)
== END 2018-04-14 05:25 | disposition short-term general hospital (02) | DRG 208 ==
LOC: ER 11:18 → MS 11:18 → SCU 04-14 03:25
PROVIDERS: ADMIT Family Medicine; ATTEND Family Medicine
DX: F32.9 Major depressive disorder, single episode, unspecified; I50.9 Heart failure, unspecified; Z79.82 Long term (current) use of aspirin; F15.10 Other stimulant abuse, uncomplicated; Z68.29 Body mass index [BMI] 29.0-29.9, adult; F17.200 Nicotine dependence, unspecified, uncomplicated; R53.1 Weakness; F41.9 Anxiety disorder, unspecified; R41.0 Disorientation, unspecified; G83.9 Paralytic syndrome, unspecified; Z79.51 Long term (current) use of inhaled steroids; E11.9 Type 2 diabetes mellitus without complications; T50.904A Poisoning by unspecified drugs, medicaments and biological substances, undetermined, initial encounter; Z95.0 Presence of cardiac pacemaker; J96.00 Acute respiratory failure, unspecified whether with hypoxia or hypercapnia; I25.2 Old myocardial infarction; Z88.5 Allergy status to narcotic agent; E66.9 Obesity, unspecified; Z79.01 Long term (current) use of anticoagulants
CPT/HCPCS: 36415; 36600; 71010; 71045; 72125; 72128; 72240; 72255; 80048; 80053; 80307; 80320; 80329; 81001; 82803; 82945; 82947; 84155; 84157; 85025; 85610; 88108; 89051; 93005; 94002; 94640; 94660; 94664; 96361; 96374; 99285; G0480; G0481